=== PATIENT | male | born 1965 | race Caucasian/White ===

== ENCOUNTER 2016-09-04 23:35 | Emergency (ER) | payer SELFPAY ==
[~2016-09-04] VITALS: Ht 160 cm; Wt 78.4 kg
[2016-09-04 23:38] VITALS: Ht 160 cm; Wt 78.4 kg
== END 2016-09-05 01:20 | disposition left against medical advice (07) ==
LOC: E/R 23:35
DX: Z53.21 Procedure and treatment not carried out due to patient leaving prior to being seen by health care provider (principal)